=== PATIENT | male | born 1975 | race Caucasian/White ===

== ENCOUNTER 2016-10-20 02:15 | Emergency (ER) | payer MEDICAID ==
[~2016-10-20] VITALS: Ht 185.4 cm; Wt 83.9 kg
[~2016-10-20 02:15] MED LIST: ATIVAN1 MG PO; CYCLOBENZAPRINE10 MG PO; HYDROCODONE BIT1 T11 PO; KLONOPIN1 M1 PO; MEDROL DOSEPAK4 MG PO; NAPROSYN500 MG PO; NORCO 325 MG-51 TAB PO; SILVADENE,SSD C50 GM T; VALIUM2 MG PO; VISTARIL50 MG PO; XANAX1 MG PO
[2016-10-20 02:48] LABS: BASO % 0.1 % (0.0-1.0); EOS % 0.1 % (1.0-4.0); HEMATOCRIT 43.1 % (42.0-52.0); HEMOGLOBIN 13.6 g/dl (14.0-18.0); IG # 0.2 10*3/uL (0.0-0.1); LYMPH # 0.7 10*3/uL (1.3-4.4); LYMPH % 5.3 % (27.0-41.0); MEAN CELL VOLUME 99.8 fl (80.0-94.0); MEAN CORPUSCULAR HGB 31.5 pg (27.0-31.0); MEAN CORPUSCULAR HGB CONC 31.6 g/dl (33.0-37.0); MEAN PLATELET VOLUME 9.2 fl (9.6-12.3); MONO # 0.6 10*3/uL (0.1-1.0); MONO % 4.6 % (3.0-9.0); NEUT % 88.6 % (47.0-73.0); PLATELET COUNT AUTOMATED 272 10*3/uL (130-400); RED BLOOD COUNT 4.32 10*6/uL (4.50-5.90); RED CELL DISTRI WIDTH 12.8 % (0-14.5); WHITE BLOOD COUNT 12.4 10*3/uL (4.8-10.8)
[2016-10-20 03:04] LABS: ALBUMIN 4.1 gm/dl (3.1-4.5); BILIRUBIN, TOTAL 0.6 mg/dl (0.2-1.0); POTASSIUM 3.5 mmol/L (3.5-5.1); TOTAL PROTEIN 7.6 gm/dL (6.4-8.2)
[2016-10-20 06:15] LABS: URINE AMPHETAMINES < 1000 (1000ng/ml); URINE BARBITURATES < 200 (200ng/ml); URINE COCAINE > 300 (300ng/ml)
== END 2016-10-20 06:49 | disposition home or self-care (01) ==
LOC: ED 02:15
PROVIDERS: Emergency Medicine
DX: T50.901A Poisoning by unspecified drugs, medicaments and biological substances, accidental (unintentional), initial encounter (principal); F17.200 Nicotine dependence, unspecified, uncomplicated; Z79.899 Other long term (current) drug therapy; Y92.9 Unspecified place or not applicable

== ENCOUNTER 2017-08-14 18:42 | Emergency (ER) | payer OTHER ==
[~2017-08-14] VITALS: Ht 182.8 cm; Wt 77.1 kg
[2017-08-14] MEDS ORDERED: MEDROL DOSEPAK4 MG PO (19:04)
== END 2017-08-14 19:21 | disposition home or self-care (01) ==
LOC: ED 18:42
DX: M25.522 Pain in left elbow (principal); G56.22 Lesion of ulnar nerve, left upper limb; Z79.899 Other long term (current) drug therapy

== ENCOUNTER 2018-05-18 13:48 | Emergency (ER) | payer OTHER ==
[~2018-05-18] VITALS: Wt 79.4 kg
[2018-05-18] MEDS ORDERED: ANTIBIOTIC28.4 GM T ×2 (14:22→14:47)
== END 2018-05-18 14:36 | disposition home or self-care (01) ==
LOC: ED 13:48
DX: T22.051A Burn of unspecified degree of right shoulder, initial encounter (principal); T22.031A Burn of unspecified degree of right upper arm, initial encounter; Z79.899 Other long term (current) drug therapy; X18.XXXA Contact with other hot metals, initial encounter; Y93.89 Activity, other specified; Y92.89 Other specified places as the place of occurrence of the external cause; Y99.8 Other external cause status

== ENCOUNTER 2020-07-10 18:21 | Emergency (ER) | payer OTHER ==
[~2020-07-10] VITALS: Ht 182.8 cm; Wt 80.7 kg
[~2020-07-10 18:21] MED LIST changes: +ANTIBIOTIC28.4 GM T
== END 2020-07-10 20:55 | disposition home or self-care (01) ==
LOC: ED 18:21
DX: H16.133 Photokeratitis, bilateral (principal); Z88.8 Allergy status to other drugs, medicaments and biological substances; W89.8XXA Exposure to other man-made visible and ultraviolet light, initial encounter; Y93.89 Activity, other specified; Y92.89 Other specified places as the place of occurrence of the external cause; Y99.8 Other external cause status